=== PATIENT | female | born 1990 | race American Indian/Alaskan Native ===

== ENCOUNTER 2017-12-04 06:50 | Emergency (ER) | payer MEDICAID, OTHER ==
[2017-12-04 07:06] VITALS: BP 137/101
[2017-12-04 08:21] LABS: Alanine Aminotransferase 16 units/L (7-56); Albumin 3.7 g/dL (3.9-5); BUN/Creatinine Ratio 11; Blood Urea Nitrogen 8 mg/dL (7-17); Calcium 8.9 mg/dL (8.4-10.2); Hemolysis Index 9
[2017-12-04 08:30] LABS: Basophils % (Auto) 0.5 % (0.0-1.8); Eosinophils # (Auto) 0.5 K/mm3 (0.0-0.4); Hematocrit 42.5 % (30.3-42.9); Hemoglobin 14.6 gm/dl (10.1-14.3); Lymphocytes # (Auto) 3.3 K/mm3 (1.2-5.4); Lymphocytes % (Auto) 39.8 % (13.4-35.0); Mean Corpuscular HGB Conc 34 % (30-34); Mean Corpuscular Hemoglobin 31 pg (28-32); Mean Corpuscular Volume 89 fl (79-97); Monocytes # (Auto) 0.6 K/mm3 (0.0-0.8); Monocytes % (Auto) 7.3 % (0.0-7.3); Platelet Count 367 K/mm3 (140-440); Red Blood Count 4.78 M/mm3 (3.65-5.03); Red Cell Distribution Width 13.2 % (13.2-15.2)
[2017-12-04 08:53] LABS: Bilirubin,Urine NEG (Negative); Blood,Urine NEG (Negative); Color,Urine Yellow (Yellow); Mucus,Urine 1+ /HPF; Nitrite,Urine NEG (Negative); Urobilinogen,Urine < 2.0 mg/dL (<2.0)
[2017-12-04] MEDS ORDERED: ZOFRAN ODT PO ONE (11:07)
[2017-12-04] MEDS ORDERED: ZOFRAN ODT ONE (11:07)
--- NOTE | 2017-12-04 11:11 | Emergency Department Report ---
Minor Respiratory - HPI Chief Complaint: Abdominal Pain Stated Complaint: ABD PAIN; N/V/D Time Seen by Provider: 12/04/17 11:02 Duration: 3 Days Minor Respiratory: Yes Rhinorrhea, Yes Sore Throat, Yes Able to Tolerate Fluids , Yes Ear Pain, Yes Cough, No Sick Contacts, No Hemoptysis, No Chest Pain, No Shortness of Breath, No Fever Other History: Patient is a 27-year-old female was presented with slight sore throat cough, congestion productive of clear sputum nausea vomiting epigastric discomfort. Patient also has body aches as well as been present for 3 days. Patient has had low-grade temp temperature here is 99.3. The patient is able to tolerate some fluids and is drinking water at the time of history and physical. Patient denies any dysuria or diarrhea chest pain headache syncope at this time. ED Review of Systems ROS: Stated complaint: ABD PAIN; N/V/D Other details as noted in HPI Comment: All other systems reviewed and negative ED Past Medical Hx - Past Medical History Previous Medical History?: Yes Hx Hypertension: Yes ( ONLY) Hx Liver Disease: No Hx Renal Disease: No Hx Seizures: No Hx Asthma: No - Surgical History Past Surgical History?: Yes Hx Cholecystectomy: Yes Additional Surgical History: c sectx 1 - Social History Smoking Status: Never Smoker Substance Use Type: None - Medications Home Medications: Home Medications Medication Instructions Recorded Confirmed Last Taken Type Ondansetron [Zofran Odt] 4 mg PO Q8HR #10 tab.rapdis 12/04/17 Unknown Rx predniSONE [Deltasone] 20 mg PO QDAY #5 tab 12/04/17 Unknown Rx traMADol [Ultram] 50 mg PO Q6HR PRN #12 tablet 12/04/17 Unknown Rx Minor Respiratory Exam - Exam General: Vital signs noted. No distress. Alert and acting appropriately. HEENT: Yes Moist Mucous Membranes, No Pharyngeal Erythema, No Pharyngeal Exudates, No Rhinorrhea, No Conjuctival Injection, No Frontal Tenderness, No Maxillary Tenderness Ear: Neither TM Bulge, Neither TM Erythema, Neither EAC Pain, Neither EAC Discharge Neck: Yes Supple, No Adenopathy Lungs: Yes Good Air Exchange, No Wheezes, No Ronchi, No Stridor, No Cough, No Labored Respirations, No Retractions, No Use of Accessory Muscles, No Other Abnormal Lung Sounds Heart: Yes Regular, No Murmur Abdomen: Yes Normal Bowel Sounds, No Tenderness, No Peritoneal Signs Skin: No Rash, No Edema Neurologic: Alert and oriented, no deficits. Musculoskeletal: Unremarkable. ED Course Vital Signs 12/04/17 06:58 Temperature 99.3 F Pulse Rate 99 H Respiratory 16 Rate Blood Pressure 137/101 O2 Sat by Pulse 97 Oximetry ED Medical Decision Making - Lab Data Result diagrams: 12/04/17 07:43 12/04/17 07:43 - Medical Decision Making Patient will be treated for suspected influenza we discharged home Critical care attestation.: If time is entered above; I have spent that time in minutes in the direct care of this critically ill patient, excluding procedure time. ED Disposition Clinical Impression: Flu-like symptoms Disposition: DC-01 TO HOME OR SELFCARE Is pt being admited?: No Does the pt Need Aspirin: No Condition: Stable Instructions: Influenza (ED) Prescriptions: Ondansetron [Zofran Odt] 4 mg PO Q8HR #10 tab.rapdis predniSONE [Deltasone] 20 mg PO QDAY #5 tab traMADol [Ultram] 50 mg PO Q6HR PRN #12 tablet PRN Reason: Pain Referrals: DR DANIELE [Other] - 3-5 Days
== END 2017-12-04 11:29 | disposition home or self-care (01) ==
LOC: ED 06:50
DX: J11.1 Influenza due to unidentified influenza virus with other respiratory manifestations (principal)
CPT/HCPCS: 36415; 80053; 81001; 84703; 85025; Q0162